=== PATIENT | female | born 1945 | race Caucasian/White ===

== ENCOUNTER → 2020-05-23 | Outpatient (CLI) | payer BC, MEDICARE ==
[~2020-05-23] MED LIST: APIX5TAB3 PO; BENA20TA4 PO; FISH12002 PO; PRAV40TA2 PO
--- NOTE | 2020-05-23 15:14 | CARD ---
MR#: [id number] Date of Study: 05/23/2020 Ordering Physician: HAILEY WILLINGHAM, Referring Physician: HAILEY WILLINGHAM, Tech: Larisa Gomez APPROVED REPORT EXAM: Two-dimensional and M-mode echocardiogram with Doppler and color Doppler. Other Information HR: 51bpm INDICATION Atrial Fibrillation Paroxysmal Atrial Fibrillation. RISK FACTORS Hypertension Hyperlipidemia 2D DIMENSIONS RVDd4.0 (2.9-3.5cm)Left Atrium(2D)3.6 (1.6-4.0cm) IVSd1.0 (0.7-1.1cm)Aortic Root(2D)3.2 (2.0-3.7cm) LVDd4.4 (3.9-5.9cm)PWd0.9 (0.7-1.1cm) LVDs3.1 (2.5-4.0cm)FS (%) 30.0 % SV50.2 mlLVEF(%)57.4 (>50%) Aortic Valve AoV Peak Simon.156.4cm/sAoV VTI41.7cm AO Peak GR.9.8mmHgLVOT Peak Simon.117.4cm/s LVOT VTI 33.44cmAO Mean GR.6mmHg Mitral Valve MV E Pjjpzurl987.0cm/sMV DECEL [id number] MV A Kxiihmgl31.5cm/sE/A Ratio1.5 Pulmonary Valve PV Peak Kditggvg30.3cm/sPV Peak Grad.4mmHg Tricuspid Valve TR P. Zjczezoh462xx/sRAP [id number] TR Peak Gr.82msMlUBHJ45epEy Pulmonary Vein S1 Beytpjai39.4cm/sD2 Tvfmwkmy61.0cm/s LEFT VENTRICLE The left ventricle is normal size. There is normal left ventricular wall thickness. The left ventricu lar systolic function is normal. The Ejection Fraction is 55-60%. There is normal LV segmental wall m otion. Transmitral Doppler flow pattern is Grade II-pseudonormal filling dynamics. RIGHT VENTRICLE The right ventricle is normal size. There is normal right ventricular wall thickness. The right ventr icular systolic function is normal. ATRIA The left atrium size is normal. The right atrium size is normal. The interatrial septum is intact wit h no evidence for an atrial septal defect or patent foramen ovale as noted on 2-D or Doppler imaging. AORTIC VALVE The aortic valve is not well visualized. Doppler and Color Flow revealed no significant aortic regurg itation. There is no significant aortic valvular stenosis. Calculated aortic valve area is 2.10 cm2 w ith maximum pressure gradient of 10 mmHg and mean pressure gradient of 6 mmHg. MITRAL VALVE The mitral valve is normal in structure and function. There is no evidence of mitral valve prolapse. There is no mitral valve stenosis. Doppler and Color-flow revealed trace mitral regurgitation. TRICUSPID VALVE The tricuspid valve is normal in structure and function. Doppler and Color Flow revealed trace tricus pid regurgitation with an estimated PAP of 19 mmHg. There is no tricuspid valve stenosis. PULMONIC VALVE The pulmonic valve is not well visualized. Doppler and Color Flow revealed trace pulmonic valvular re gurgitation. GREAT VESSELS The aortic root is normal in size. The IVC is normal in size and collapses >50% with inspiration. PERICARDIAL EFFUSION There is no evidence of significant pericardial effusion. Critical Notification Critical Value: No <Conclusion> The left ventricular systolic function is normal. The Ejection Fraction is 55-60%. There is normal LV segmental wall motion. Trace mitral regurgitation. Trace tricuspid regurgitation with an estimated PAP of 19 mmHg. There is no evidence of significant pericardial effusion. Signed by : Christo Moy, Electronically Approved : 05/23/2020 15:14:15
== END | disposition home or self-care (01) ==
LOC: ECHO 10:52
PROVIDERS: ATTEND Internal Medicine Cardiovascular Disease
DX: I48.0 Paroxysmal atrial fibrillation (principal)
CPT/HCPCS: 93306

== ENCOUNTER → 2021-10-01 | Outpatient (CLI) | payer MEDICARE, BC ==
[~2021-10-01] MED LIST changes: -BENA20TA4 PO; +BENA20TA84 PO; +IOHEXOL 240 MG/ML 50ML VIAL. ONE; +IOHEXOL 300 MG/ML 75 ML VIAL. IV ONE; +IOHEXOL 300 MG/ML 75 ML VIAL. ONE
[2021-10-01 11:05] LABS: CREATININE 1.3 mg/dL (0.6-1.0); GFR 39.6
--- NOTE | 2021-10-01 13:11 | RAD ---
EXAM: Abdomen and pelvis CT with intravenous contrast. HISTORY: Sigmoid cancer. TECHNIQUE: Computed tomographic images of the abdomen and pelvis were obtained following the administ ration of intravenous contrast. Multiplanar reformatting was performed. *One or more of the following individualized dose reduction techniques were utilized for this examina tion: 1. Automated exposure control. 2. Adjustment of the mA and/or kV according to patient size. 3. Use of iterative reconstruction technique. COMPARISON: None. FINDINGS: Evaluation of the lower thorax demonstrates no infiltrate or pleural effusion. There is a c alcified left lower lobe granuloma. There is a small hiatal hernia. There is hepatic steatosis. There is cholelithiasis, including a large stone filling the majority of the gallbladder fundus or superim posed wall calcification. No pancreatic lesion is seen. There are splenic granulomas. The spleen is n ormal in size. There is a 1.2 cm right adrenal nodule. There is renal cortical lobulation, likely due to scarring. There is a 3 mm nonobstructing left renal stone. There is no hydronephrosis. The bladder is unremarkable. There is no appendicitis. There is moderate colonic stool. There is distal colonic diverticulosis. Th ere is segmental wall thickening involving the mid to distal sigmoid colon, likely corresponding with the location of reported malignancy. This segment measures approximately 4.5 cm in length. There is surrounding fatty stranding. There is no bowel obstruction. There is aortobiiliac atherosclerosis. There is no lymphadenopathy or convincing soft tissue implant. The uterus is absent. No adnexal lesion is seen. There is diastasis o f the ventral abdominal wall musculature at a small fat-containing umbilical hernia. There is degener ative change throughout the spine and both hips. There is no acute or suspicious osseous finding. IMPRESSION: 1. Segmental wall thickening involving the mid to distal sigmoid colon with surrounding fatty strandi ng likely due to the site of known biopsy-proven malignancy. This segment of thickening measures appr oximately 4.5 cm in length. There is no convincing metastatic lymphadenopathy or soft tissue implant. 2. Colonic diverticulosis. 3. Indeterminate 1.2 cm right adrenal nodule. Given the aforementioned history of primary malignancy, the differential includes an adrenal adenoma as well as metastasis. This can be better assessed with an adrenal protocol MRI. 4. Hepatic steatosis. 5. Cholelithiasis, including a large stone within the gallbladder fundus or superimposed wall calcifi cation. 6. Left nephrolithiasis. 7. Ventral abdominal wall diastasis with superimposed small fat-containing umbilical hernia. 8. Small hiatal hernia. Electronically signed by: Sonia Grey MD (10/01/2021 1:09 PM) [id number]
== END ==
LOC: CT 10:23
PROVIDERS: ATTEND Internal Medicine Gastroenterology
DX: K80.20 Calculus of gallbladder without cholecystitis without obstruction (principal); N20.0 Calculus of kidney; K76.0 Fatty (change of) liver, not elsewhere classified; K57.30 Diverticulosis of large intestine without perforation or abscess without bleeding; E27.8 Other specified disorders of adrenal gland; K44.9 Diaphragmatic hernia without obstruction or gangrene; M62.08 Separation of muscle (nontraumatic), other site; K42.9 Umbilical hernia without obstruction or gangrene; M47.819 Spondylosis without myelopathy or radiculopathy, site unspecified; N18.30 Chronic kidney disease, stage 3 unspecified; M16.0 Bilateral primary osteoarthritis of hip; K63.89 Other specified diseases of intestine
CPT/HCPCS: 36415; 74177; 82565; 84520; Q9966; Q9967

== ENCOUNTER → 2021-10-12 | Outpatient (CLI) | payer MEDICARE, BC ==
[~2021-10-12] MED LIST changes: -IOHEXOL 240 MG/ML 50ML VIAL. ONE; +IOHEXOL 300 MG/ML 50 ML VIAL. IV ONE; -IOHEXOL 300 MG/ML 75 ML VIAL. IV ONE; -IOHEXOL 300 MG/ML 75 ML VIAL. ONE
--- NOTE | 2021-10-12 09:58 | RAD ---
CT THORAX W INDICATION: Reason: GFR 39, CREAT. 1.3 ON 10.01.2021. Colon cancer. Comparison: CT abdomen pelvis 10/01/2021. TECHNIQUE: Following the uneventful administration of intravenous contrast, 50 cc Isovue-370, axial C T sections were obtained through the lungs and upper abdomen. Multiplanar reconstructions and MIP ruth ges were obtained. PQRS compliance statement: One or more of the following individualized dose reduction techniques were utilized for this examinat ion: 1. Automated exposure control 2. Adjustment of the mA and/or kV according to patient size 3. Use of iterative reconstruction technique FINDINGS: Lungs and Airways: No pulmonary mass or consolidation. Calcified pulmonary granulomas. No abnormality of the central airways. Pleura: The pleural spaces are normal. Heart and Mediastinum: The visualized thyroid is normal in size and attenuation. No axillary or supra clavicular lymphadenopathy. No mediastinal, hilar or retrocrural lymphadenopathy. Normal cardiac size . No pericardial effusion. Coronary artery atherosclerotic disease. Normal caliber thoracic aorta. Ti ny hiatal hernia. Abdomen: Please see recent CT abdomen pelvis report for abdominal findings. Bones and Soft Tissues: Degenerative changes of the spine. IMPRESSION: No evidence of metastatic disease in the chest. Electronically signed by: Cristiano Arellano MD (10/12/2021 9:55 AM) [id number]
== END ==
LOC: CT 09:07
DX: J84.10 Pulmonary fibrosis, unspecified (principal); K44.9 Diaphragmatic hernia without obstruction or gangrene; I25.10 Atherosclerotic heart disease of native coronary artery without angina pectoris; K63.89 Other specified diseases of intestine
CPT/HCPCS: 71260; Q9967